=== PATIENT | female | born 1960 | race Caucasian/White ===

== ENCOUNTER → 2021-05-09 | Day surgery (SDC) | payer OTHER ==
[~2021-05-09] VITALS: Ht 177.8 cm; Wt 93.4 kg
[~2021-05-09] MED LIST: ASPIRIN81 MG PO; B COMPLEX1 EACH PO; CLONAZEPAM0.5 MG PO; DULOXETINE HCL30 MG PO; GABAPENTIN 100100 MG PO; JARDIANCE25 MG PO; LOSARTAN-HCTZ1 EAC2 PO; MAGNESIUM PO; METFORMIN HCL500 M1 PO; MONTELUKAST SOD10 MG PO; OMEPRAZOLE40 MG PO; ROSUVASTATIN CA10 MG PO; TRULICITY4.5 MG/0.5 PO; VENTOLIN HFA IN18 GM INH; VITAMIN D3 PO
[2021-05-09 06:38] LABS: HCT 38.5 % (37.0-47.0); HGB 12.7 g/dl (12.5-16.0); MCH 28.1 pg (25.0-31.0); MCV 85.2 fL (78.0-100.0); MPV 10.5 fL (6.0-9.5); RBC 4.52 M/uL (4.20-5.40); RDW 13.3 % (11.5-14.0); WBC 5.7 K/uL (4.0-10.5)
[2021-05-09 06:56] LABS: ALBUMIN 3.6 g/dL (3.4-5.0); BILIRUBIN - TOTAL 0.4 mg/dL (0.2-1.0); CREATININE 0.94 mg/dL (0.51-0.95); GLOBULIN (CALCULATION) 3.8 g/dL; TOTAL PROTEIN 7.4 g/dL (6.4-8.2)
== END | disposition home or self-care (01) ==
LOC: FAS 06:01
PROVIDERS: Orthopaedic Surgery
DX: G56.01 Carpal tunnel syndrome, right upper limb (principal); M65.331 Trigger finger, right middle finger; M65.321 Trigger finger, right index finger; I12.9 Hypertensive chronic kidney disease with stage 1 through stage 4 chronic kidney disease, or unspecified chronic kidney disease; E11.22 Type 2 diabetes mellitus with diabetic chronic kidney disease; N18.30 Chronic kidney disease, stage 3 unspecified; E78.00 Pure hypercholesterolemia, unspecified; J45.909 Unspecified asthma, uncomplicated; G47.30 Sleep apnea, unspecified; Z88.1 Allergy status to other antibiotic agents; Z88.6 Allergy status to analgesic agent; Z79.82 Long term (current) use of aspirin; Z79.84 Long term (current) use of oral hypoglycemic drugs; Z79.899 Other long term (current) drug therapy
CPT/HCPCS: 36415; 80053; J1040; J1170; J1885; J2250; J2405; J2704; J3010; J7120